=== PATIENT | female | born 1970 | race African-American/Black ===

== ENCOUNTER 2022-10-04 11:58 | Emergency (ER) | payer OTHER ==
[2022-10-04 12:05] VITALS: BP 166/107; PULSE 91; RESP 20; TEMP 97.3; BMI 27.4
[2022-10-04] MEDS ORDERED: ACETAMINOPHEN 325 MG TABLET (FP) PO ONE (12:22)
[2022-10-04] MEDS ORDERED: ACETAMINOPHEN 325 MG TABLET (FP) ONE (12:42)
[2022-10-04 13:23] LABS: BASO % 3.7 % (0-2.0); EOS % 1.6 % (0-4.5); HEMATOCRIT 39.1 % (32.4-45.2); HEMOGLOBIN 13.9 GM/dL (10.7-15.3); LYMPH % 37.7 % (8-40); MCH 31.3 pg (25.7-33.7); MCHC 35.4 g/dl (32.0-36.0); MEAN CELL VOLUME 88.5 fl (80-96); MEAN PLT VOLUME 7.6 fl (7.5-11.1); MONO % 5.9 % (3.8-10.2); NEUT % 51.1 % (42.8-82.8); PLATELET COUNT 407 10^3/uL (134-434); RBC 4.42 M/mm3 (3.60-5.2); RDW 12.9 % (11.6-15.6); WHITE BLOOD COUNT 4.9 K/mm3 (4.0-10.0)
[2022-10-04 13:24] LABS: INR 1.09 (0.83-1.09); PROTHROMBIN TIME (PATIENT) 12.6 SEC (9.7-13.0)
[2022-10-04 13:27] LABS: ACTIVATED PTT 32.4 SECONDS (25.2-36.5)
[2022-10-04 13:29] LABS: CHLORIDE 105 mmol/L (98-107); SODIUM 140 mmol/L (136-145)
[2022-10-04 13:31] LABS: ALBUMIN 3.8 g/dl (3.4-5.0); ANION GAP 10 MMOL/L (8-16); CO2 25 mmol/L (21-32); GLUCOSE,RANDOM 101 mg/dL (74-106)
[2022-10-04 13:34] LABS: CREATININE 0.8 mg/dL (0.55-1.3); SGOT/AST 15 U/L (15-37); SGPT/ALT 17 U/L (13-61)
[2022-10-04 13:35] LABS: BILIRUBIN,TOTAL 0.7 mg/dL (0.2-1); TOT PROT 7.5 g/dl (6.4-8.2)
[2022-10-04 13:37] LABS: ALK PHOS 62 U/L (45-117)
== END 2022-10-04 18:18 | disposition home or self-care (01) ==
LOC: JERFT 11:58
DX: R07.9 Chest pain, unspecified (principal)
CPT/HCPCS: 0241U-QW; 36415; 71046-TC-FY; 71275-TC; 80053; 82375; 84484; 85025; 85379; 85610; 85730; 93005; 93010; 99285-25; Q9967

== ENCOUNTER 2024-11-21 01:19 | Emergency (ER) | payer OTHER ==
[2024-11-21 01:31] VITALS: BP 156/98; PULSE 65; RESP 17; TEMP 98.1; BMI 24.6
[2024-11-21] MEDS ORDERED: ALBUTEROL SO4 2.5/IPRATROPIUM 0.5 INH SOL 3 ML VIAL.NEB. NEB ONE (03:15)
[2024-11-21 03:16] LABS: BASO % 1.5 % (0-2.0); EOS % 2.3 % (0-4.5); HEMATOCRIT 38.6 % (32.4-45.2); HEMOGLOBIN 13.7 GM/dL (10.7-15.3); LYMPH % 43.8 % (8-40); MCH 31.3 pg (25.7-33.7); MCHC 35.3 g/dl (32.0-36.0); MEAN CELL VOLUME 88.5 fl (80-96); MEAN PLT VOLUME 7.8 fl (7.5-11.1); MONO % 6.3 % (3.8-10.2); NEUT % 46.1 % (42.8-82.8); PLATELET COUNT 327 10^3/uL (134-434); RBC 4.36 M/mm3 (3.60-5.2); RDW 13.5 % (11.6-15.6); WHITE BLOOD COUNT 6.1 K/mm3 (4.0-10.0)
[2024-11-21 03:18] LABS: POTASSIUM 3.6 mmol/L (3.5-5.1)
[2024-11-21 03:20] LABS: CALCIUM 9.1 mg/dL (8.5-10.1)
[2024-11-21 03:21] LABS: ALBUMIN 3.6 g/dl (3.4-5.0); BLOOD UREA NITROGEN 8.7 mg/dL (7-18)
[2024-11-21] MEDS: ALBUTEROL SO4 2.5/IPRATROPIUM 0.5 INH SOL 3 ML VIAL.NEB. NEB ONE (03:23)
[2024-11-21 03:24] LABS: CREATININE 0.8 mg/dL (0.55-1.3)
[2024-11-21 03:25] LABS: BILIRUBIN,TOTAL 0.4 mg/dL (0.2-1); TOT PROT 6.9 g/dl (6.4-8.2)
== END 2024-11-21 05:41 | disposition home or self-care (01) ==
LOC: JER 01:19
PROC: 3E0F7GC Introduction of Other Therapeutic Substance into Respiratory Tract, Via Natural or Artificial Opening (ICD-10-PCS; principal; 2024-11-21)
DX: R07.89 Other chest pain (principal); R00.2 Palpitations; R06.02 Shortness of breath; R42 Dizziness and giddiness
CPT/HCPCS: 36415; 71046-TC-FY; 80053; 83735; 83880; 84439; 84443; 84484; 85025; 93005; 93010; 99285-25